=== PATIENT | female | born 1990 | race Two or more races ===

== ENCOUNTER 2023-03-19 04:24 | Emergency (ER) | payer MEDICAID, OTHER ==
[~2023-03-19] VITALS: Ht 165.1 cm; Wt 53.2 kg
[2023-03-19 04:31] VITALS: BP 126/78; PULSE 88; RESP 16; TEMP 98.4; O2SAT 100
== END 2023-03-19 05:11 | disposition left against medical advice (07) ==
LOC: ER 04:24
DX: Z53.21 Procedure and treatment not carried out due to patient leaving prior to being seen by health care provider (principal)
CPT/HCPCS: 99281